=== PATIENT | female | born 1980 | race Caucasian/White ===

== ENCOUNTER → 2019-10-23 | Outpatient (CLI) | payer MEDICAID ==
--- NOTE | 2019-10-24 11:22 | US ---
EXAM DESCRIPTION: Abdomen,Limited: ULTRASOUND. CLINICAL HISTORY: RIGHT UPPER QUADRANT PAIN COMPARISON: None. TECHNIQUE: Transabdominal scanning: martin-scale mode. Doppler mode. FINDINGS: Gallbladder: normal size, shape, echogenicity; no intraluminal stones or sludge. No fluid around the gallbladder. No wall thickening. 1.9 mm. Non-tender with transducer pressure. Common bile duct: caliber 3.9 mm within normal limits. Liver: Heterogeneously increased echogenicity; contour liver capsule smooth where seen. No fluid around the liver. Intrahepatic biliary ducts normal caliber. Doppler hepatopedal flow and normal caliber portal vein.. Long axis right lobe 12.7 cm. Pancreas: normal size and echogenicity. Duct not seen. Proximal abdominal aorta: 1.1 cm.. IVC: visualized and normal caliber. Right kidney: long axis measures 9.0 cm. Normal cortical thickness and Echogenicity. Normal cortical thickness. No echogenic stones or hydronephrosis. IMPRESSION: 1. Steatosis of the liver with normal caliber ducts and physiologic vascularity. Not enlarged. Smooth capsule with no ascites. 2. Gallbladder, right kidney, and pancreas are unremarkable. Proximal abdominal aorta and IVC normal caliber. Electronically signed by: Todd Maldonado MD 10/24/2019 11:21 AM CUPOL[facility] MELTER
== END ==
LOC: US 08:00
PROVIDERS: ATTEND Nurse Practitioner Family
DX: K76.0 Fatty (change of) liver, not elsewhere classified (principal)

== ENCOUNTER → 2019-11-01 | Outpatient (CLI) | payer MEDICAID ==
--- NOTE | 2019-11-01 15:33 | RAD ---
EXAM DESCRIPTION: UGI: Rad-Fluoroscopy. CLINICAL HISTORY: RUQ PAIN COMPARISON: Limited abdominal ultrasound on 23 October. TECHNIQUE: Preliminary AP cyber systems administrator radiograph. The patient swallowed barium pill with water. The patient swallowed gas-producing granules, water, and heavy density barium under fluoroscopic visualization. The images were obtained with the patient upright and horizontal. Patient drank medium density barium through a straw in the semi-prone position. Senior Assistant Manager AP images of abdomen and pelvis. 49 fluoroscopic cine loop images. 24 static fluoroscopic images. Total fluoroscopy time was 9.1 minutes. DAP: 30.8 Gy-cm2.. Dose 123.79 mGy. FINDINGS: Large amount of fecal matter in the colon on the cyber systems administrator image. Minimal gas in the stomach. Spondylosis in the lower lumbar and lumbosacral spine. Pelvic vascular calcifications. Patient swallowed the barium pill with some difficulty. Delay in the mid esophagus and at the gastroesophageal junction. No delay in the primary peristalsis wave of the esophagus. No secondary or tertiary contractions. Small sliding hiatal hernia. No Schatzki's ring. No abnormal mucosal pattern in the distal third of the esophagus. Marked gastroesophageal reflux, to the level of the thoracic inlet, after rolling into supine position, without Valsalva maneuver and coughing. Stomach was well distended by gas and contrast material with no intrinsic abnormality or mass effect. Delayed passage from the stomach through the duodenal bulb to the distal duodenum. Duodenal bulb never distended completely with prominent folds in the duodenal bulb and the proximal duodenum. Also smooth intrinsic lesion in the duodenal bulb. Contrast did not enter the jejunum. IMPRESSION: 1. No abnormality in primary peristaltic wave in the esophagus. No abnormality in the distal mucosa and no mass effect. Small sliding hiatal hernia with Schatzki's ring. Marked gastroesophageal reflux above the thoracic inlet without maneuvers. 2. No intrinsic or extrinsic abnormality of the stomach. 3. Delayed passage of contrast through the duodenal bulb and duodenum. Irregularity of the mucosa of the bulb and proximal duodenum could be due to ulcer or inflammatory changes. Smooth mass effect in the bulb could represent a polyp. Electronically signed by: Todd Maldonado MD 11/01/2019 3:31 PM [facility] PUNCHER
== END ==
LOC: RAD 12:09
PROVIDERS: ATTEND Nurse Practitioner Family
DX: K22.2 Esophageal obstruction (principal); K44.0 Diaphragmatic hernia with obstruction, without gangrene; K21.9 Gastro-esophageal reflux disease without esophagitis